=== PATIENT | male | born 1955 | race Caucasian/White ===

== ENCOUNTER 2022-12-31 18:28 | Inpatient (IN) | payer MEDICARE, MEDICAID ==
[~2022-12-31] VITALS: Ht 175.3 cm; Wt 75.0 kg
[~2022-12-31 18:28] MED LIST: ALBU17AE26 PO; APIX5TAB3 PO; ASPI-1475 PO; ATOR40TA72 GT; CARV3.122 GT; DOXY-224 PO; ESOM20CA PO; FURO40TA4 GT; IPRA3AMP31 NEB; NICO-731 TOP; POTA-205 PO; SACU1TAB PO; SPIR25TA5 GT
[2022-12-31 21:40] LABS: ALANINE AMINOTRANSFERASE 65 U/L (12-78); ALBUMIN 1.7 G/DL (3.4-5.0); ALBUMIN/GLOBULIN RATIO 0.3 (1.1-1.5); ALKALINE PHOSPHATASE 388 IU/L (46-116); ANION GAP 9 (8-16); ASPARTATE AMINO TRANSFERASE 72 U/L (10-37); BILIRUBIN,TOTAL 0.8 MG/DL (0.1-1.0); BLOOD UREA NITROGEN 41 MG/DL (7-18); BUN/CREATININE RATIO 33.9 (10.0-20.0); CHLORIDE 116 MMOL/L (99-107); CREATININE 1.21 MG/DL (0.60-1.10); SODIUM 151 MMOL/L (135-145); TOTAL CARBON DIOXIDE 26.4 MMOL/L (24-32); TOTAL PROTEIN 6.6 G/DL (6.4-8.2); eGFR 60 ML/MIN
[2022-12-31 21:47] LABS: GLUCOSE 119 MG/DL (70-104); POTASSIUM 5.1 MMOL/L (3.5-5.1)
[2022-12-31] MEDS ORDERED: pantoprazole 40mg IV 80 MG in normal saline 100ml IV soln 100 ML IV ONE (22:05)
[2022-12-31] MEDS: tPA-cathflo 2 MG/2 ml IV flush IVF PRN ×2 (22:24→23:44)
--- NOTE | 2022-12-31 22:55 | NUR ---
Third attempt to straight cath patient for urine, patient states "I aint doin' that, no no no".
[2022-12-31 23:41] LABS: BASOPHILS % (AUTO) 0.4 % (0-1); EOSINOPHILS # (AUTO) 0.1 X10'3 (0-0.9); EOSINOPHILS % (AUTO) 0.9 % (0-6); HEMATOCRIT 25.9 % (42.0-52.0); HEMOGLOBIN 8.4 g/dl (14.0-17.9); LYMPHOCYTES # (AUTO) 0.5 X10'3 (1.1-4.8); LYMPHOCYTES % (AUTO) 7.6 % (21-51); MEAN CORPUSCULAR HEMOGLOBIN 29.1 PG (27.0-31.0); MEAN CORPUSCULAR HGB CONC 32.4 g/dL (33.0-36.5); MEAN CORPUSCULAR VOLUME 89.8 FL (78-98); MEAN PLATELET VOLUME 8.8 FL (7.4-10.4); MONOCYTES # (AUTO) 0.7 X10'3 (0-0.9); MONOCYTES % (AUTO) 9.5 % (2-12); NEUTROPHILS # (AUTO) 5.8 X10'3 (1.8-7.7); NEUTROPHILS % (AUTO) 81.6 % (42-75); PLATELET COUNT 291 X10'3 (140-440); RED BLOOD COUNT 2.88 X10'6 (4.70-6.10); RED CELL DISTRIBUTION WIDTH 18.6 % (11.5-14.5); WHITE BLOOD COUNT 7.1 X10'3 (4.5-11.0)
[2022-12-31 23:41] LABS: COLOR,URINE YELLOW (Yellow); GLUCOSE, URINE NEGATIVE (Neg); KETONES,URINE NEGATIVE (Neg); LEUKOCYTE ESTERASE ,URINE TRACE (Neg); NITRITES, URINE NEGATIVE (Neg); OCCULT BLOOD,URINE NEGATIVE (Neg); PROTEIN,URINE 100 mg/dl (Neg)
[2023-01-01] VITALS (17 sets, daily range): BP systolic 57–151; BP diastolic 40–103
[2023-01-01] LABS: UA COLLECTION TYPE CLN CATCH MIDSTREAM
[2023-01-01 00:02] LABS: BACTERIA,URINE FEW /HPF (Neg); RBC,URINE 0-2 /HPF (0-2)
[2023-01-01 00:02] LABS: APTT 29 SECONDS (22-32)
[2023-01-01 00:03] LABS: CLARITY,URINE SLIGHTLY CLOUDY (Clear); MUCUS STRANDS FEW /LPF (Neg); SQUAMOUS EPITHELIAL CELL,UR FEW /LPF (FEW); YEAST FEW /HPF (NEGATIVE)
[2023-01-01 00:04] LABS: SPERM FEW /HPF (NEGATIVE)
[2023-01-01 00:19] LABS: ANISOCYTOSIS 2+; NUCLEATED RED BLOOD CELLS 4 /100WBC (0-0); PLATELET ESTIMATE NORMAL; TOTAL CELLS COUNTED 100
[2023-01-01 00:20] LABS: GIANT PLATELET FEW; LARGE PLATELETS FEW; POLYCHROMASIA FEW
[2023-01-01 00:21] LABS: ELLIPTOCYTES FEW; POIKILOCYTOSIS FEW
[2023-01-01 00:22] LABS: SMUDGE CELLS FEW
[2023-01-01] MEDS ORDERED: potassium Cl 40MEQ/1/2NS 520ml 520 ML IV PRN (00:40)
[2023-01-01] MEDS: potassium cl 20mEq in 1/2 NS 1,000 ML IV SCH ×2 (00:40→10:40)
[2023-01-01] MEDS ORDERED: mag hydrox/Alum hydrox/simeth 30ml oral suspension PO PRN (00:40)
[2023-01-01] MEDS ORDERED: potassium Cl 20 mEq SR tablet PO PRN ×2 (00:40)
[2023-01-01] MEDS ORDERED: HYDROcodone/acetaminophen 5mg/325mg tablet PO PRN (00:40)
[2023-01-01] MEDS ORDERED: HYDROcodone/acetaminophen 10/325mg tab PO PRN (00:40)
[2023-01-01] MEDS ORDERED: diphenhydrAMINE 25mg capsule PO PRN (00:40)
[2023-01-01] MEDS ORDERED: magnesium 4gm in 100ml NS 100 ML IV PRN (00:40)
[2023-01-01] MEDS ORDERED: ondansetron/PF 4mg/2ml inj IV PRN ×3 (00:40→19:05)
[2023-01-01] MEDS ORDERED: magnesium hydroxide 30ml (MOM) UD suspension PO PRN ×3 (00:40→19:05)
[2023-01-01] MEDS ORDERED: magnesium Cl slow-release 64mg tablet PO PRN (00:40)
[2023-01-01] MEDS ORDERED: acetaminophen 325mg tablet PO PRN ×5 (00:40→19:05)
[2023-01-01] MEDS ORDERED: rocuronium 10mg/ml inj IV ONE (02:00)
[2023-01-01] MEDS ORDERED: etomidate 2mg/ml inj. ONE (02:00)
[2023-01-01] MEDS: pantoprazole 40MG/NS 100ML BAG 100 ML IV SCH ×5 (02:02→22:15)
[2023-01-01] MEDS: octreotide inj. 1,250 MCG in normal saline 250ml IV soln 243.75 ML IV SCH (02:02)
[2023-01-01 02:39] LABS: MAGNESIUM 2.3 MG/DL (1.5-2.4); POTASSIUM 4.6 MMOL/L (3.5-5.1)
[2023-01-01] MEDS ORDERED: ATR0.5NEB IH (04:38)
[2023-01-01] MEDS ORDERED: DIGO125T97 GT (04:38)
[2023-01-01] MEDS ORDERED: HYDR-3964 PO (04:38)
[2023-01-01] MEDS ORDERED: PANT40VI2 IV (04:47)
[2023-01-01] MEDS ORDERED: LORA-268 GT (04:47)
[2023-01-01] MEDS ORDERED: ipratropium/albuterol 3ml nebule NEB PRN (05:55)
[2023-01-01] MEDS ORDERED: docusate sod 100mg capsule PO SCH (08:00)
[2023-01-01] MEDS: carVEDilol 3.125mg tablet PO SCH ×3 (08:00→20:00)
[2023-01-01] MEDS: sacubitril/valsartan 24mg-26mg tablet PO SCH ×2 (08:00→20:00)
[2023-01-01] MEDS: atorvastatin 20mg tablet PO SCH ×2 (08:00→10:20)
[2023-01-01] MEDS: furosemide 40mg tablet PO SCH ×2 (08:00→20:00)
[2023-01-01] MEDS: K and/or MAG REPLACEMENT MC SCH ×2 (08:00→20:00)
[2023-01-01] MEDS: potassium chloride 10mEq ER tablet PO SCH (08:00)
[2023-01-01] MEDS: spironolactone 25 MG tablet PO SCH (08:00)
[2023-01-01] MEDS: LORazepam 0.5 MG tablet PO SCH ×3 (08:00→20:00)
[2023-01-01] MEDS: HYDROcodone/acetaminophen 5mg/325mg tablet PO SCH ×4 (08:00→16:00)
--- NOTE | 2023-01-01 09:00 | NUR ---
rt was paged for breathing treatment
--- NOTE | 2023-01-01 09:04 | NUR ---
Paged Dr. Morin to clarify order for lasix 40mg po and lasx 80 mg iv.
[2023-01-01] MEDS: nicotine 14mg patch - 24hr TD SCH (09:08)
[2023-01-01] MEDS: furosemide 10 MG/1 ML 10ml inj IV SCH ×2 (09:09→20:00)
[2023-01-01] MEDS: albuterol 2.5 MG/3 ML nebule NEB SCH ×4 (09:46→21:06)
[2023-01-01] MEDS: ipratropium 0.5 MG/2.5ML nebule IH SCH ×3 (09:46→21:06)
--- NOTE | 2023-01-01 09:48 | NUR ---
PER DR BOOKER VERBAL ORDER: STOP SANDOSTATIN AT THIS TIME
[2023-01-01 11:49] LABS: BASOPHILS % (AUTO) 0.7 % (0-1); EOSINOPHILS % (AUTO) 0.7 % (0-6); HEMATOCRIT 26.9 % (42.0-52.0); HEMOGLOBIN 8.4 g/dl (14.0-17.9); LYMPHOCYTES # (AUTO) 0.4 X10'3 (1.1-4.8); LYMPHOCYTES % (AUTO) 7.4 % (21-51); MEAN CORPUSCULAR HEMOGLOBIN 28.8 PG (27.0-31.0); MEAN CORPUSCULAR HGB CONC 31.5 g/dL (33.0-36.5); MEAN CORPUSCULAR VOLUME 91.5 FL (78-98); MEAN PLATELET VOLUME 8.7 FL (7.4-10.4); MONOCYTES # (AUTO) 0.5 X10'3 (0-0.9); MONOCYTES % (AUTO) 10.1 % (2-12); NEUTROPHILS # (AUTO) 4.4 X10'3 (1.8-7.7); NEUTROPHILS % (AUTO) 81.1 % (42-75); PLATELET COUNT 294 X10'3 (140-440); RED BLOOD COUNT 2.94 X10'6 (4.70-6.10); WHITE BLOOD COUNT 5.4 X10'3 (4.5-11.0)
--- NOTE | 2023-01-01 12:10 | NUR ---
UPDATED PT'S BROTHER NAT AT [phone]
[2023-01-01 12:32] LABS: ANISOCYTOSIS 2+; HYPOCHROMASIA 1+; NUCLEATED RED BLOOD CELLS 2 /100WBC (0-0); PLATELET ESTIMATE NORMAL; POLYCHROMASIA 2+; STOMATOCYTES 1+; TOTAL CELLS COUNTED 100
[2023-01-01] MEDS ORDERED: fentaNYL/PF 50MCG/1 ML 2ML syringe ONE ×2 (13:53→18:11)
[2023-01-01] MEDS ORDERED: LIDOcaine Viscous 15ml cup ONE (13:53)
[2023-01-01] MEDS ORDERED: MIDAZolam 1 MG/ML 5ML VIAL ONE (13:53)
[2023-01-01] MEDS ORDERED: epiNEPHrine 0.1mg/ml 10ml syringe ONE (15:31)
--- NOTE | 2023-01-01 15:38 | NUR ---
called to get report from ER will await call back
[2023-01-01] MEDS ORDERED: morphine 2 MG/ML inj. syringe IV PRN ×2 (15:45→19:05)
[2023-01-01] MEDS ORDERED: morphine 4 MG/ML inj SYRINge IV PRN ×2 (15:45→19:05)
[2023-01-01] MEDS ORDERED: heparin, porcine 5000 units/ml vial SQ SCH ×2 (16:00)
--- NOTE | 2023-01-01 16:36 | NUR ---
REC'VD TELEPHONE ORDER FROM DR BOOKER, ORDER H AND H Q4 HRS TIMES 3. ORDER WAS INPUT BY THIS RN
[2023-01-01 17:52] LABS: BASOPHILS % (AUTO) 0.4 % (0-1); EOSINOPHILS % (AUTO) 0.4 % (0-6); HEMATOCRIT 25.4 % (42.0-52.0); HEMOGLOBIN 7.9 g/dl (14.0-17.9); LYMPHOCYTES # (AUTO) 0.8 X10'3 (1.1-4.8); LYMPHOCYTES % (AUTO) 8.6 % (21-51); MEAN CORPUSCULAR HEMOGLOBIN 28.5 PG (27.0-31.0); MEAN CORPUSCULAR HGB CONC 31.1 g/dL (33.0-36.5); MEAN CORPUSCULAR VOLUME 91.6 FL (78-98); MEAN PLATELET VOLUME 8.7 FL (7.4-10.4); MONOCYTES % (AUTO) 11.6 % (2-12); NEUTROPHILS # (AUTO) 6.9 X10'3 (1.8-7.7); PLATELET COUNT 358 X10'3 (140-440); RED BLOOD COUNT 2.78 X10'6 (4.70-6.10); RED CELL DISTRIBUTION WIDTH 19.4 % (11.5-14.5); WHITE BLOOD COUNT 8.8 X10'3 (4.5-11.0)
--- NOTE | 2023-01-01 18:02 | NUR ---
180:RT Donis, Dr. Ward, Primary RN Anshu at bedside.115/53mmhg, 92% BVM,33RR, patient with agonal breathing,intermittent apnea,hr 110 sinus 180:etomidate 20mg,alexis 50mg- administered by Primary RN Anshu.Intubation by Dr. Ward.ET tube 8.0 24cm in the gums.positive color change with etc02 capnography, equal bilateral lungs sounds. 96%,117 HR sinus 181: fentanyl 100mcg IVP given by Primary RN Anshu. 1813: radiology at bedside to check for tube placement. 1814: HR 110 sinus tachy,22 RR FI02 100%, BP 50/31, pulse ox not giving a good plathe.
[2023-01-01] MEDS ORDERED: fentaNYL/PF 50MCG/1 ML 2ML syringe IV ONE (18:10)
[2023-01-01] MEDS ORDERED: fentaNYL 50mcg/ml PF inj. 2,500 MCG in normal saline 250ml IV soln 200 ML IV SCH (18:15)
[2023-01-01] MEDS ORDERED: FENTANYL CITRATE/D5W/PF 100 ML IV SCH (18:18)
--- NOTE | 2023-01-01 18:23 | NUR ---
Fentanyl drip still not available from the pharmacy.
[2023-01-01] MEDS: NORepinephrine 8mg/ 250ml NS 250 ML IV SCH (18:37)
[2023-01-01] MEDS: NORMAL SALINE IV SCH (18:41)
[2023-01-01] MEDS: FENTANYL IV SCH (18:41)
[2023-01-01 18:43] LABS: ABG BASE EXCESS -4.1 mmol/L (-2.0-2.0); ABG HCO3 20.2 mmol/L (22.0-26.0); ABG OXYGEN SATURATION 98.9 % (94-97); ABG PCO2 (T) 31.4 mmHg (35.0-48.0); ABG PO2 (T) 268.4 mmHg (75.0-100.0); ALLEN'S TEST POSITIVE; FCOHb 0.5 % (0.0-3.9); FMetHb 0.6 % (0.0-1.5); FO2Hb 97.8 % (94-97); PEEP 5 cm H2O; RESPIRATORY RATE 18 b/min; TIDAL VOLUME 450 mL
[2023-01-01] MEDS ORDERED: albumin (human) 25% 100 ML IV solution IV ONE (18:55)
[2023-01-01] MEDS ORDERED: albumin (human) 25% 100ml IV 400 ML IV ONE (19:00)
[2023-01-01 19:02] LABS: MEAN CORPUSCULAR HEMOGLOBIN 28.4 PG (27.0-31.0); MEAN CORPUSCULAR HGB CONC 30.4 g/dL (33.0-36.5); MEAN CORPUSCULAR VOLUME 93.3 FL (78-98); MEAN PLATELET VOLUME 8.5 FL (7.4-10.4); PLATELET COUNT 320 X10'3 (140-440); RED BLOOD COUNT 1.87 X10'6 (4.70-6.10); RED CELL DISTRIBUTION WIDTH 19.4 % (11.5-14.5); WHITE BLOOD COUNT 6.9 X10'3 (4.5-11.0)
[2023-01-01] MEDS ORDERED: normal saline 1000ml 1,000 ML IV SCH (19:05)
[2023-01-01] MEDS ORDERED: tranexamic acid inj. 1,000 MG in normal saline 100ml IV soln 90 ML IV ONE (19:05)
[2023-01-01] MEDS ORDERED: LidoCAINE 2% Topical Jelly 11mL syringe TOP ONE (19:05)
[2023-01-01 19:07] LABS: HEMATOCRIT 17.4 % (42.0-52.0); HEMOGLOBIN 5.3 g/dl (14.0-17.9)
--- NOTE | 2023-01-01 19:22 | NUR ---
Versed drip getting ready by pharmacy per Jared.
[2023-01-01] MEDS ORDERED: midazolam 100mg in NS 100ml 100 ML IV PRN (19:45)
--- NOTE | 2023-01-01 19:54 | NUR ---
Pineda 50mg given by Primary RN Dr. Maura Moura at bedside to attempt placement of right subclavian central line.V/s 108/67mmmhg, 100% 80% FIO2, HR 114 sinus tachy, RR 18.
[2023-01-01] MEDS: docusate sodium 100mg/10ml UD cup PO SCH (20:00)
--- NOTE | 2023-01-01 20:08 | NUR ---
Right subclavian central line successfully placed by Dr. Lorenzo.
[2023-01-01] MEDS: albumin (Human) 5% 250ml 250 ML IV SCH ×2 (21:59→23:20)
[2023-01-02] VITALS (37 sets, daily range): BP systolic 88–139; BP diastolic 54–74
[2023-01-02] MEDS: albuterol 2.5 MG/3 ML nebule NEB SCH ×6 (00:47→19:18)
[2023-01-02] MEDS: pantoprazole 40MG/NS 100ML BAG 100 ML IV SCH ×6 (01:00→23:30)
[2023-01-02] MEDS: digoxin 125mcg (0.125mg) tablet PO SCH ×2 (01:40→21:00)
[2023-01-02] MEDS: albumin (Human) 5% 250ml 250 ML IV SCH (01:49)
[2023-01-02 01:57] LABS: ALANINE AMINOTRANSFERASE 37 U/L (12-78); ALBUMIN 1.4 G/DL (3.4-5.0); ALBUMIN/GLOBULIN RATIO 0.5 (1.1-1.5); ALKALINE PHOSPHATASE 157 IU/L (46-116); ANION GAP 8 (8-16); ASPARTATE AMINO TRANSFERASE 42 U/L (10-37); BILIRUBIN,TOTAL 1.7 MG/DL (0.1-1.0); BLOOD UREA NITROGEN 46 MG/DL (7-18); BUN/CREATININE RATIO 32.4 (10.0-20.0); CALCIUM 6.8 MG/DL (8.5-10.1); CHLORIDE 122 MMOL/L (99-107); CREATININE 1.42 MG/DL (0.60-1.10); GLUCOSE 126 MG/DL (70-104); POTASSIUM 4.6 MMOL/L (3.5-5.1); TOTAL CARBON DIOXIDE 25.3 MMOL/L (24-32); TOTAL PROTEIN 4.1 G/DL (6.4-8.2); eGFR 50 ML/MIN
[2023-01-02 02:10] LABS: SODIUM 155 MMOL/L (135-145)
[2023-01-02 02:18] LABS: EOSINOPHILS % (AUTO) 0.4 % (0-6); HEMOGLOBIN 8.7 g/dl (14.0-17.9); LYMPHOCYTES # (AUTO) 0.5 X10'3 (1.1-4.8); MONOCYTES # (AUTO) 0.5 X10'3 (0-0.9); NEUTROPHILS % (AUTO) 80.4 % (42-75)
[2023-01-02 02:19] LABS: BASOPHILS % (AUTO) 0.4 % (0-1); HEMATOCRIT 26.8 % (42.0-52.0); LYMPHOCYTES % (AUTO) 9.3 % (21-51); MEAN CORPUSCULAR HEMOGLOBIN 29.3 PG (27.0-31.0); MEAN CORPUSCULAR HGB CONC 32.5 g/dL (33.0-36.5); MEAN PLATELET VOLUME 8.7 FL (7.4-10.4); MONOCYTES % (AUTO) 9.5 % (2-12); NEUTROPHILS # (AUTO) 4.2 X10'3 (1.8-7.7); PLATELET COUNT 218 X10'3 (140-440); RED BLOOD COUNT 2.97 X10'6 (4.70-6.10); RED CELL DISTRIBUTION WIDTH 15.9 % (11.5-14.5); WHITE BLOOD COUNT 5.2 X10'3 (4.5-11.0)
[2023-01-02 02:59] LABS: NUCLEATED RED BLOOD CELLS 5 /100WBC (0-0); TOTAL CELLS COUNTED 100
[2023-01-02 03:08] LABS: LARGE PLATELETS FEW; PLATELET ESTIMATE NORMAL
[2023-01-02 03:42] LABS: ABG BASE EXCESS -3.4 mmol/L (-2.0-2.0); ABG HCO3 19.5 mmol/L (22.0-26.0); ABG OXYGEN SATURATION 97.4 % (94-97); ABG PCO2 (T) 26.5 mmHg (35.0-48.0); ALLEN'S TEST POSITIVE; FCOHb 0.3 % (0.0-3.9); FMetHb 0.3 % (0.0-1.5); FO2Hb 96.8 % (94-97); PEEP 5 cm H2O; RESPIRATORY RATE 18 b/min; TIDAL VOLUME 450 mL; TOTAL HEMOGLOBIN 8.9 G/dl (14.0-17.9)
[2023-01-02] MEDS: ipratropium 0.5 MG/2.5ML nebule IH SCH ×4 (03:43→19:18)
--- NOTE | 2023-01-02 04:24 | NUR ---
critical value of Na [address] Grove, ordered stop albumin and NSS infusion, start half saline 75cc/hr
[2023-01-02] MEDS: sodium chloride 0.45% 1,000 ML IV SCH ×2 (04:39→18:28)
[2023-01-02 06:03] LABS: HEMATOCRIT 23.9 % (42.0-52.0); HEMOGLOBIN 7.9 g/dl (14.0-17.9); MEAN CORPUSCULAR HEMOGLOBIN 29.6 PG (27.0-31.0); MEAN CORPUSCULAR HGB CONC 33.1 g/dL (33.0-36.5); MEAN CORPUSCULAR VOLUME 89.4 FL (78-98); MEAN PLATELET VOLUME 8.6 FL (7.4-10.4); PLATELET COUNT 205 X10'3 (140-440); RED BLOOD COUNT 2.67 X10'6 (4.70-6.10); RED CELL DISTRIBUTION WIDTH 15.8 % (11.5-14.5); WHITE BLOOD COUNT 5.7 X10'3 (4.5-11.0)
--- NOTE | 2023-01-02 06:20 | NUR ---
Problems reprioritized. Patient report given, questions answered & plan of care reviewed with JODY Willoughby.
[2023-01-02] MEDS: spironolactone 25 MG tablet PO SCH (08:00)
[2023-01-02] MEDS: atorvastatin 20mg tablet PO SCH (08:00)
[2023-01-02] MEDS: potassium chloride 10mEq ER tablet PO SCH (08:00)
[2023-01-02] MEDS: K and/or MAG REPLACEMENT MC SCH ×2 (08:00→20:00)
[2023-01-02] MEDS: sacubitril/valsartan 24mg-26mg tablet PO SCH ×2 (08:00→20:00)
[2023-01-02] MEDS: furosemide 40mg tablet PO SCH ×2 (08:00→20:00)
[2023-01-02] MEDS: carVEDilol 3.125mg tablet PO SCH ×2 (08:00→20:00)
[2023-01-02] MEDS: LORazepam 0.5 MG tablet PO SCH ×2 (08:00→20:00)
[2023-01-02] MEDS: docusate sodium 100mg/10ml UD cup PO SCH ×2 (08:00→20:00)
[2023-01-02] MEDS: FENTANYL IV SCH (08:35)
[2023-01-02] MEDS: NORMAL SALINE IV SCH (08:35)
[2023-01-02] MEDS: furosemide 10 MG/1 ML 10ml inj IV SCH ×2 (08:36→20:37)
[2023-01-02] MEDS: nicotine 14mg patch - 24hr TD SCH (08:36)
--- NOTE | 2023-01-02 11:06 | NUR ---
Initial: Pt admit for GIB. Pt s/p EGD with findings of recurrent duodenal ulcer bleed per report. Pt remains intubated at this time, per MD pt to remain intubated and possibly get scoped again. Pt with an OGT in place, per RN with minimal output but still blood in color. No plans to initiate nutrition support at this time though will place recs below for if pt able to receive EN. MD and RN notified of patient's A1c hx (7.1% 12/01/21, 7.4% 10/14/22, and 9.0% 11/05/22) and need for DM dx as appropriate following extubation. Will continue to follow closely. Recommendations: 1) IF TF, continuous Vital AF with 70 mL/hr goal rate. Begin at 30 mL/hr and advance by 20 mL Q8H as tolerated to goal rate 2) IF TF, additional 200 mL water flush Q4H; monitor serum Na 3) IF TF, prealbumin q Wednesday/; daily scaled weights 4) Bowel care per MD 5) Advance to heart healthy CHO controlled diet as medically indicated following extubation 6) DM education as appropriate following official DM dx by physician after extubation; A1c hx 7.1% 12/01/21, 7.4% 10/14/22, and 9.0% 11/05/22 and no known DM dx provided yet Addendum: 01/02/23 at [address] Amended: Links added.
[2023-01-02 11:29] LABS: BASOPHILS % (AUTO) 0.4 % (0-1); EOSINOPHILS # (AUTO) 0.1 X10'3 (0-0.9); EOSINOPHILS % (AUTO) 2.1 % (0-6); HEMOGLOBIN 8.3 g/dl (14.0-17.9); LYMPHOCYTES # (AUTO) 0.5 X10'3 (1.1-4.8); LYMPHOCYTES % (AUTO) 6.4 % (21-51); MEAN CORPUSCULAR HEMOGLOBIN 29.6 PG (27.0-31.0); MEAN CORPUSCULAR HGB CONC 33.3 g/dL (33.0-36.5); MEAN PLATELET VOLUME 8.2 FL (7.4-10.4); MONOCYTES # (AUTO) 0.5 X10'3 (0-0.9); MONOCYTES % (AUTO) 7.6 % (2-12); NEUTROPHILS % (AUTO) 83.5 % (42-75); PLATELET COUNT 236 X10'3 (140-440); RED BLOOD COUNT 2.81 X10'6 (4.70-6.10); RED CELL DISTRIBUTION WIDTH 16.4 % (11.5-14.5); WHITE BLOOD COUNT 7.1 X10'3 (4.5-11.0)
[2023-01-02] MEDS ORDERED: fentaNYL/PF 50MCG/1 ML 2ML syringe ONE (11:57)
[2023-01-02] MEDS ORDERED: LIDOcaine Viscous 15ml cup ONE (11:58)
[2023-01-02] MEDS ORDERED: MIDAZolam 1 MG/ML 5ML VIAL ONE ×2 (11:58)
--- NOTE | 2023-01-02 13:00 | NUR ---
dr schroeder here- egd done- no active bleeding. hgb stable- checked q6h dr muniz here to evaluate pt. update to pts brother x3. pt opens eyes, doesnt follow commands. versed changed to [place]. chaplain ding called re pts brother desire to have a valet parker or pipefitter to come. He will follow up with a valet parker or himself to see pt in the next day or so.
[2023-01-02] MEDS: propofol 1000mg/100ml bottle 100 ML IV SCH (13:26)
[2023-01-02] MEDS: NORepinephrine 8mg/ 250ml NS 250 ML IV SCH (13:53)
[2023-01-02 17:30] LABS: BASOPHILS % (AUTO) 0.4 % (0-1); EOSINOPHILS # (AUTO) 0.2 X10'3 (0-0.9); EOSINOPHILS % (AUTO) 2.4 % (0-6); HEMATOCRIT 24.9 % (42.0-52.0); HEMOGLOBIN 8.2 g/dl (14.0-17.9); LYMPHOCYTES # (AUTO) 0.4 X10'3 (1.1-4.8); LYMPHOCYTES % (AUTO) 5.2 % (21-51); MEAN CORPUSCULAR HEMOGLOBIN 29.4 PG (27.0-31.0); MEAN CORPUSCULAR HGB CONC 32.8 g/dL (33.0-36.5); MEAN CORPUSCULAR VOLUME 89.9 FL (78-98); MEAN PLATELET VOLUME 8.5 FL (7.4-10.4); MONOCYTES # (AUTO) 0.5 X10'3 (0-0.9); MONOCYTES % (AUTO) 5.8 % (2-12); NEUTROPHILS # (AUTO) 6.9 X10'3 (1.8-7.7); NEUTROPHILS % (AUTO) 86.2 % (42-75); PLATELET COUNT 224 X10'3 (140-440); RED BLOOD COUNT 2.77 X10'6 (4.70-6.10); RED CELL DISTRIBUTION WIDTH 16.8 % (11.5-14.5)
[2023-01-02 22:56] LABS: BASOPHILS % (AUTO) 0.3 % (0-1); EOSINOPHILS # (AUTO) 0.2 X10'3 (0-0.9); EOSINOPHILS % (AUTO) 1.9 % (0-6); HEMATOCRIT 26.4 % (42.0-52.0); HEMOGLOBIN 8.8 g/dl (14.0-17.9); LYMPHOCYTES # (AUTO) 0.4 X10'3 (1.1-4.8); LYMPHOCYTES % (AUTO) 4.3 % (21-51); MEAN CORPUSCULAR HEMOGLOBIN 30.1 PG (27.0-31.0); MEAN CORPUSCULAR HGB CONC 33.3 g/dL (33.0-36.5); MEAN CORPUSCULAR VOLUME 90.2 FL (78-98); MEAN PLATELET VOLUME 8.2 FL (7.4-10.4); MONOCYTES # (AUTO) 0.6 X10'3 (0-0.9); MONOCYTES % (AUTO) 5.7 % (2-12); NEUTROPHILS # (AUTO) 8.8 X10'3 (1.8-7.7); NEUTROPHILS % (AUTO) 87.8 % (42-75); PLATELET COUNT 250 X10'3 (140-440); RED BLOOD COUNT 2.93 X10'6 (4.70-6.10); RED CELL DISTRIBUTION WIDTH 16.8 % (11.5-14.5)
[2023-01-02 23:58] LABS: TOTAL CELLS COUNTED 100
[2023-01-02 23:59] LABS: ANISOCYTOSIS 1+; PLATELET ESTIMATE NORMAL
[2023-01-03] VITALS (35 sets, daily range): BP systolic 83–137; BP diastolic 50–79
[2023-01-03] MEDS: octreotide inj. 1,250 MCG in normal saline 250ml IV soln 243.75 ML IV SCH (00:45)
[2023-01-03] MEDS: ipratropium 0.5 MG/2.5ML nebule IH SCH (01:13)
[2023-01-03] MEDS: albuterol 2.5 MG/3 ML nebule NEB SCH ×2 (01:13→03:56)
[2023-01-03 03:52] LABS: ABG BASE EXCESS -3.3 mmol/L (-2.0-2.0); ABG HCO3 21.1 mmol/L (22.0-26.0); ABG OXYGEN SATURATION 90.9 % (94-97); ABG PCO2 (T) 36.2 mmHg (35.0-48.0); ABG PO2 (T) 61.8 mmHg (75.0-100.0); ALLEN'S TEST POSITIVE; FCOHb 0.8 % (0.0-3.9); FMetHb 0.2 % (0.0-1.5); PATIENT TEMPERATURE 37.5; PEEP 5 cm H2O; RESPIRATORY RATE 18 b/min; TIDAL VOLUME 450 mL; TOTAL HEMOGLOBIN 9.8 G/dl (14.0-17.9)
[2023-01-03] MEDS: pantoprazole 40MG/NS 100ML BAG 100 ML IV SCH ×4 (04:03→19:25)
[2023-01-03] MEDS: NORMAL SALINE IV SCH ×2 (04:49→22:13)
[2023-01-03] MEDS: FENTANYL IV SCH ×2 (04:49→22:13)
[2023-01-03 04:51] LABS: BASOPHILS % (AUTO) 0.3 % (0-1); EOSINOPHILS # (AUTO) 0.1 X10'3 (0-0.9); EOSINOPHILS % (AUTO) 1.3 % (0-6); HEMATOCRIT 26.7 % (42.0-52.0); HEMOGLOBIN 8.8 g/dl (14.0-17.9); LYMPHOCYTES # (AUTO) 0.5 X10'3 (1.1-4.8); LYMPHOCYTES % (AUTO) 4.4 % (21-51); MEAN CORPUSCULAR HEMOGLOBIN 29.6 PG (27.0-31.0); MEAN CORPUSCULAR HGB CONC 32.8 g/dL (33.0-36.5); MEAN CORPUSCULAR VOLUME 90.1 FL (78-98); MONOCYTES # (AUTO) 0.6 X10'3 (0-0.9); MONOCYTES % (AUTO) 5.3 % (2-12); NEUTROPHILS # (AUTO) 9.8 X10'3 (1.8-7.7); NEUTROPHILS % (AUTO) 88.7 % (42-75); PLATELET COUNT 255 X10'3 (140-440); RED BLOOD COUNT 2.97 X10'6 (4.70-6.10); RED CELL DISTRIBUTION WIDTH 16.5 % (11.5-14.5)
[2023-01-03 05:02] LABS: ALANINE AMINOTRANSFERASE 38 U/L (12-78); ALBUMIN 1.6 G/DL (3.4-5.0); ALBUMIN/GLOBULIN RATIO 0.5 (1.1-1.5); ALKALINE PHOSPHATASE 143 IU/L (46-116); ANION GAP 12 (8-16); ASPARTATE AMINO TRANSFERASE 49 U/L (10-37); BILIRUBIN,TOTAL 1.9 MG/DL (0.1-1.0); BLOOD UREA NITROGEN 49 MG/DL (7-18); CALCIUM 6.9 MG/DL (8.5-10.1); CHLORIDE 120 MMOL/L (99-107); CREATININE 1.69 MG/DL (0.60-1.10); GLUCOSE 90 MG/DL (70-104); MAGNESIUM 1.8 MG/DL (1.5-2.4); POTASSIUM 3.3 MMOL/L (3.5-5.1); SODIUM 154 MMOL/L (135-145); TOTAL CARBON DIOXIDE 22.4 MMOL/L (24-32); TOTAL PROTEIN 4.6 G/DL (6.4-8.2); eGFR 41 ML/MIN
[2023-01-03 05:53] LABS: ANISOCYTOSIS 1+; NUCLEATED RED BLOOD CELLS 1 /100WBC (0-0); PLATELET ESTIMATE NORMAL; TOTAL CELLS COUNTED 100
--- NOTE | 2023-01-03 06:28 | NUR ---
Problems reprioritized. Patient report given, questions answered & plan of care reviewed with FRANCE VERA.
[2023-01-03] MEDS: ipratropium/albuterol 3ml nebule NEB SCH ×5 (07:18→23:32)
--- NOTE | 2023-01-03 07:41 | NUR ---
Patient in room CICU 2016. I have received report from Kay VERA and had the opportunity to ask questions and assume patient care.
[2023-01-03] MEDS: sodium chloride 0.45% 1,000 ML IV SCH ×2 (07:42→20:25)
[2023-01-03] MEDS: atorvastatin 20mg tablet PO SCH (08:00)
[2023-01-03] MEDS: sacubitril/valsartan 24mg-26mg tablet PO SCH ×2 (08:00→20:00)
[2023-01-03] MEDS: K and/or MAG REPLACEMENT MC SCH ×2 (08:00→20:00)
[2023-01-03] MEDS: carVEDilol 3.125mg tablet PO SCH ×2 (08:00→20:00)
[2023-01-03] MEDS: furosemide 40mg tablet PO SCH ×2 (08:00→20:00)
[2023-01-03] MEDS: LORazepam 0.5 MG tablet PO SCH ×2 (08:00→20:00)
[2023-01-03] MEDS: spironolactone 25 MG tablet PO SCH (08:00)
[2023-01-03] MEDS: docusate sodium 100mg/10ml UD cup PO SCH ×2 (08:00→20:00)
[2023-01-03] MEDS: furosemide 10 MG/1 ML 10ml inj IV SCH ×3 (08:30→20:29)
[2023-01-03] MEDS: nicotine 14mg patch - 24hr TD SCH ×3 (08:31→09:58)
[2023-01-03] MEDS: NORepinephrine 8mg/ 250ml NS 250 ML IV SCH (09:21)
[2023-01-03] MEDS: potassium chloride 10mEq ER tablet PO SCH (09:56)
[2023-01-03] MEDS ORDERED: potassium Cl 40MEQ/1/2NS 520ml 520 ML IV ONE (10:10)
[2023-01-03] MEDS: propofol 1000mg/100ml bottle 100 ML IV SCH (11:15)
[2023-01-03 11:36] LABS: HEMATOCRIT 26.6 % (42.0-52.0); HEMOGLOBIN 8.4 g/dl (14.0-17.9); MEAN CORPUSCULAR HEMOGLOBIN 28.9 PG (27.0-31.0); MEAN CORPUSCULAR HGB CONC 31.7 g/dL (33.0-36.5); MEAN CORPUSCULAR VOLUME 91.1 FL (78-98); PLATELET COUNT 264 X10'3 (140-440); RED BLOOD COUNT 2.92 X10'6 (4.70-6.10); WHITE BLOOD COUNT 12.3 X10'3 (4.5-11.0)
[2023-01-03] MEDS ORDERED: DOBUTamine-DoBUTrex 500mg/D5W 250 ML IV SCH (12:10)
[2023-01-03] MEDS ORDERED: vancomycin/NS 1 GM ADD-VANTAGE 250 ML X 1 DOSE IV SCH (12:40)
[2023-01-03] MEDS: vancomycin/NS 1 GM ADD-VANTAGE 250 ML IV SCH (13:40)
[2023-01-03] MEDS: cefepime 1GM/NS ADD-VANTAGE 100 ML IV SCH ×2 (13:40→16:27)
[2023-01-03] MEDS ORDERED: furosemide 20 MG/2 ML vial IV SCH (14:00)
[2023-01-03 17:50] LABS: HEMATOCRIT 24.1 % (42.0-52.0); HEMOGLOBIN 7.7 g/dl (14.0-17.9); MEAN CORPUSCULAR HEMOGLOBIN 29.5 PG (27.0-31.0); MEAN CORPUSCULAR HGB CONC 32.1 g/dL (33.0-36.5); MEAN CORPUSCULAR VOLUME 92.1 FL (78-98); MEAN PLATELET VOLUME 8.2 FL (7.4-10.4); PLATELET COUNT 241 X10'3 (140-440); RED BLOOD COUNT 2.62 X10'6 (4.70-6.10); WHITE BLOOD COUNT 11.5 X10'3 (4.5-11.0)
--- NOTE | 2023-01-03 18:08 | NUR ---
Problems reprioritized. Patient report given, questions answered & plan of care reviewed with Jones VERA .
--- NOTE | 2023-01-03 18:10 | NUR ---
Patient in room CICU 2016. I have received report from Cammy Rowan RN and had the opportunity to ask questions and assume patient care.
[2023-01-03] MEDS: digoxin 125mcg (0.125mg) tablet PO SCH (20:31)
[2023-01-04] VITALS (31 sets, daily range): BP systolic 95–148; BP diastolic 46–76
[2023-01-04] MEDS: cefepime 1GM/NS ADD-VANTAGE 100 ML IV SCH ×2 (00:30→08:53)
[2023-01-04] MEDS: digoxin 125mcg (0.125mg) tablet PO SCH ×2 (00:31→20:16)
[2023-01-04] MEDS: sodium chloride 0.45% 1,000 ML IV SCH ×2 (01:14→16:21)
[2023-01-04] MEDS: pantoprazole 40MG/NS 100ML BAG 100 ML IV SCH ×5 (01:14→21:35)
[2023-01-04 01:42] LABS: BASOPHILS % (AUTO) 0.4 % (0-1); EOSINOPHILS # (AUTO) 0.1 X10'3 (0-0.9); EOSINOPHILS % (AUTO) 1.1 % (0-6); HEMATOCRIT 24.5 % (42.0-52.0); LYMPHOCYTES # (AUTO) 0.4 X10'3 (1.1-4.8); LYMPHOCYTES % (AUTO) 4.3 % (21-51); MEAN CORPUSCULAR HEMOGLOBIN 29.9 PG (27.0-31.0); MEAN CORPUSCULAR HGB CONC 32.7 g/dL (33.0-36.5); MEAN CORPUSCULAR VOLUME 91.5 FL (78-98); MEAN PLATELET VOLUME 8.4 FL (7.4-10.4); MONOCYTES # (AUTO) 0.8 X10'3 (0-0.9); MONOCYTES % (AUTO) 7.8 % (2-12); NEUTROPHILS # (AUTO) 8.5 X10'3 (1.8-7.7); NEUTROPHILS % (AUTO) 86.4 % (42-75); PLATELET COUNT 240 X10'3 (140-440); RED BLOOD COUNT 2.68 X10'6 (4.70-6.10); RED CELL DISTRIBUTION WIDTH 17.4 % (11.5-14.5); WHITE BLOOD COUNT 9.8 X10'3 (4.5-11.0)
[2023-01-04 01:51] LABS: ALANINE AMINOTRANSFERASE 40 U/L (12-78); ALBUMIN 1.3 G/DL (3.4-5.0); ALBUMIN/GLOBULIN RATIO 0.4 (1.1-1.5); ALKALINE PHOSPHATASE 125 IU/L (46-116); ANION GAP 13 (8-16); ASPARTATE AMINO TRANSFERASE 63 U/L (10-37); BILIRUBIN,TOTAL 2.4 MG/DL (0.1-1.0); BLOOD UREA NITROGEN 54 MG/DL (7-18); BUN/CREATININE RATIO 30.9 (10.0-20.0); CHLORIDE 120 MMOL/L (99-107); CREATININE 1.75 MG/DL (0.60-1.10); GLUCOSE 93 MG/DL (70-104); MAGNESIUM 1.8 MG/DL (1.5-2.4); POTASSIUM 3.4 MMOL/L (3.5-5.1); TOTAL PROTEIN 4.3 G/DL (6.4-8.2); eGFR 39 ML/MIN
[2023-01-04 01:55] LABS: SODIUM 155 MMOL/L (135-145)
[2023-01-04] MEDS: furosemide 10 MG/1 ML 10ml inj IV SCH ×4 (02:14→20:17)
[2023-01-04] MEDS: potassium Cl 40MEQ/270ML bag 270 ML IV PRN (02:18)
[2023-01-04 03:37] LABS: NUCLEATED RED BLOOD CELLS 1 /100WBC (0-0); TOTAL CELLS COUNTED 100
[2023-01-04 03:38] LABS: ANISOCYTOSIS 1+; PLATELET ESTIMATE NORMAL
[2023-01-04 03:52] LABS: ABG BASE EXCESS -6.2 mmol/L (-2.0-2.0); ABG HCO3 17.9 mmol/L (22.0-26.0); ABG OXYGEN SATURATION 92.8 % (94-97); ABG PCO2 (T) 28.5 mmHg (35.0-48.0); ABG PO2 (T) 59.6 mmHg (75.0-100.0); ALLEN'S TEST Modified; FCOHb 0.3 % (0.0-3.9); FMetHb 0.2 % (0.0-1.5); FO2Hb 92.3 % (94-97); PATIENT TEMPERATURE 35.5; PEEP 5 cm H2O; RESPIRATORY RATE 18 b/min; TIDAL VOLUME 450 mL; TOTAL HEMOGLOBIN 8.6 G/dl (14.0-17.9)
[2023-01-04] MEDS: ipratropium/albuterol 3ml nebule NEB SCH ×6 (04:02→23:41)
[2023-01-04] MEDS: NORepinephrine 8mg/ 250ml NS 250 ML IV SCH (04:49)
[2023-01-04] MEDS: propofol 1000mg/100ml bottle 100 ML IV SCH (05:32)
[2023-01-04 05:57] LABS: HEMATOCRIT 25.1 % (42.0-52.0); HEMOGLOBIN 8.1 g/dl (14.0-17.9); MEAN CORPUSCULAR HEMOGLOBIN 29.7 PG (27.0-31.0); MEAN CORPUSCULAR HGB CONC 32.4 g/dL (33.0-36.5); MEAN CORPUSCULAR VOLUME 91.5 FL (78-98); MEAN PLATELET VOLUME 8.2 FL (7.4-10.4); PLATELET COUNT 252 X10'3 (140-440); RED BLOOD COUNT 2.74 X10'6 (4.70-6.10); RED CELL DISTRIBUTION WIDTH 17.1 % (11.5-14.5); WHITE BLOOD COUNT 10.5 X10'3 (4.5-11.0)
--- NOTE | 2023-01-04 06:23 | NUR ---
Problems reprioritized. Patient report given, questions answered & plan of care reviewed with Tess VERA.
[2023-01-04] MEDS: docusate sodium 100mg/10ml UD cup PO SCH ×2 (07:42→20:00)
[2023-01-04] MEDS: carVEDilol 3.125mg tablet PO SCH ×2 (07:42→21:39)
[2023-01-04] MEDS: spironolactone 25 MG tablet PO SCH (07:42)
[2023-01-04] MEDS: LORazepam 0.5 MG tablet PO SCH ×2 (07:42→20:00)
[2023-01-04] MEDS: atorvastatin 20mg tablet PO SCH (08:00)
[2023-01-04] MEDS: K and/or MAG REPLACEMENT MC SCH ×2 (08:00→20:00)
[2023-01-04] MEDS: potassium chloride 10mEq ER tablet PO SCH (08:00)
[2023-01-04] MEDS: sacubitril/valsartan 24mg-26mg tablet PO SCH ×2 (08:00→20:00)
[2023-01-04 12:13] LABS: POTASSIUM 3.4 MMOL/L (3.5-5.1)
[2023-01-04] MEDS ORDERED: potassium Cl 40MEQ/270ML bag 270 ML IV ONE (13:05)
[2023-01-04] MEDS: vancomycin/NS 1 GM ADD-VANTAGE 250 ML IV SCH (13:14)
[2023-01-04] MEDS ORDERED: cefepime 1GM/NS ADD-VANTAGE 100 ML IV SCH (15:58)
--- NOTE | 2023-01-04 18:05 | NUR ---
Patient in room CICU 2016. I have received report from Tess VERA and had the opportunity to ask questions and assume patient care.
[2023-01-04] MEDS: dextrose 5%-water 1,000 ML IV SCH (20:23)
[2023-01-05] VITALS (24 sets, daily range): BP systolic 86–147; BP diastolic 51–96
[2023-01-05] MEDS: pantoprazole 40MG/NS 100ML BAG 100 ML IV SCH ×5 (02:07→19:28)
[2023-01-05] MEDS: furosemide 10 MG/1 ML 10ml inj IV SCH (02:09)
[2023-01-05 03:00] LABS: BASOPHILS % (AUTO) 0.2 % (0-1); EOSINOPHILS # (AUTO) 0.2 X10'3 (0-0.9); EOSINOPHILS % (AUTO) 2.1 % (0-6); HEMATOCRIT 27.1 % (42.0-52.0); HEMOGLOBIN 8.8 g/dl (14.0-17.9); LYMPHOCYTES # (AUTO) 0.3 X10'3 (1.1-4.8); LYMPHOCYTES % (AUTO) 3.3 % (21-51); MEAN CORPUSCULAR HEMOGLOBIN 29.7 PG (27.0-31.0); MEAN CORPUSCULAR HGB CONC 32.6 g/dL (33.0-36.5); MEAN CORPUSCULAR VOLUME 91.1 FL (78-98); MEAN PLATELET VOLUME 8.2 FL (7.4-10.4); MONOCYTES # (AUTO) 0.8 X10'3 (0-0.9); MONOCYTES % (AUTO) 8.3 % (2-12); NEUTROPHILS # (AUTO) 8.4 X10'3 (1.8-7.7); NEUTROPHILS % (AUTO) 86.1 % (42-75); PLATELET COUNT 292 X10'3 (140-440); RED BLOOD COUNT 2.97 X10'6 (4.70-6.10); RED CELL DISTRIBUTION WIDTH 17.5 % (11.5-14.5); WHITE BLOOD COUNT 9.7 X10'3 (4.5-11.0)
[2023-01-05 03:20] LABS: ALANINE AMINOTRANSFERASE 52 U/L (12-78); ALBUMIN 1.3 G/DL (3.4-5.0); ALBUMIN/GLOBULIN RATIO 0.4 (1.1-1.5); ALKALINE PHOSPHATASE 134 IU/L (46-116); ANION GAP 10 (8-16); ASPARTATE AMINO TRANSFERASE 84 U/L (10-37); BILIRUBIN,TOTAL 2.8 MG/DL (0.1-1.0); BLOOD UREA NITROGEN 47 MG/DL (7-18); BUN/CREATININE RATIO 27.2 (10.0-20.0); CALCIUM 7.5 MG/DL (8.5-10.1); CHLORIDE 118 MMOL/L (99-107); CREATININE 1.73 MG/DL (0.60-1.10); GLUCOSE 115 MG/DL (70-104); MAGNESIUM 1.7 MG/DL (1.5-2.4); POTASSIUM 3.2 MMOL/L (3.5-5.1); SODIUM 152 MMOL/L (135-145); TOTAL CARBON DIOXIDE 24.1 MMOL/L (24-32); TOTAL PROTEIN 4.9 G/DL (6.4-8.2); eGFR 39 ML/MIN
[2023-01-05] MEDS: ipratropium/albuterol 3ml nebule NEB SCH ×6 (03:24→23:41)
[2023-01-05] MEDS: potassium Cl 40MEQ/270ML bag 270 ML IV PRN ×2 (04:01→15:08)
--- NOTE | 2023-01-05 06:15 | NUR ---
Problems reprioritized. Patient report given, questions answered & plan of care reviewed with Chito VERA.
[2023-01-05] MEDS: LORazepam 0.5 MG tablet PO SCH ×2 (07:57→20:00)
[2023-01-05] MEDS: carVEDilol 3.125mg tablet PO SCH ×2 (07:57→21:16)
[2023-01-05] MEDS: docusate sodium 100mg/10ml UD cup PO SCH ×3 (07:57→21:16)
[2023-01-05] MEDS: potassium chloride 10mEq ER tablet PO SCH (07:57)
[2023-01-05] MEDS: sacubitril/valsartan 24mg-26mg tablet PO SCH ×2 (07:57→22:54)
[2023-01-05] MEDS: atorvastatin 20mg tablet PO SCH (07:57)
[2023-01-05] MEDS: spironolactone 25 MG tablet PO SCH (07:58)
[2023-01-05] MEDS: furosemide 40mg/4ml inj IV SCH ×2 (07:58→21:16)
[2023-01-05] MEDS: nicotine 14mg patch - 24hr TD SCH (07:58)
[2023-01-05] MEDS: K and/or MAG REPLACEMENT MC SCH ×2 (08:00→20:00)
--- NOTE | 2023-01-05 11:04 | NUR ---
Reassessment: Per EMR pt extubated 01/04, s/p BSS this morning with ST recs pureed food with thin liquids. Pending first meal since diet advancement. Pt continues receiving D5 at 75 mL/hr for hypernatremia providing 306 kcal/day. LBN 01/04. No more evidence of bleeding at this time per RN at [facility]. Will continue to follow closely and monitor need for nutrition intervention pending trends in PO intake. Recommendations: 1) Continue pureed diet with thin liquids per ST recs; add heart healthy CHO controlled diet IF pt with adequate PO intake and elevated BG 2) Monitor need for ONS 3) Bowel care per MD 4) DM education as appropriate following official DM dx by physician; A1c hx 7.1% 12/01/21, 7.4% 10/14/22, and 9.0% 11/05/22 and no known DM dx provided yet-physician notified 01/02 Addendum: 01/05/23 at [address] Amended: Links added.
[2023-01-05] MEDS: dextrose 5%-water 1,000 ML IV SCH (13:51)
[2023-01-05] MEDS: vancomycin/NS 1 GM ADD-VANTAGE 250 ML IV SCH (13:51)
[2023-01-05 14:31] LABS: HEMATOCRIT 28.4 % (42.0-52.0); MEAN CORPUSCULAR HEMOGLOBIN 29.3 PG (27.0-31.0); MEAN CORPUSCULAR HGB CONC 31.9 g/dL (33.0-36.5); MEAN PLATELET VOLUME 8.3 FL (7.4-10.4); PLATELET COUNT 387 X10'3 (140-440); RED BLOOD COUNT 3.08 X10'6 (4.70-6.10); RED CELL DISTRIBUTION WIDTH 17.7 % (11.5-14.5); WHITE BLOOD COUNT 11.6 X10'3 (4.5-11.0)
[2023-01-05] MEDS: CLINDAMYCIN 600mg IN NS 50ML 50 ML IV SCH ×2 (16:37→23:55)
--- NOTE | 2023-01-05 18:22 | NUR ---
Problems reprioritized. Patient report given, questions answered & plan of care reviewed with JODY Rojas.
--- NOTE | 2023-01-05 18:30 | NUR ---
Patient in room CICU 2016. I have received report from JODY Dale and had the opportunity to ask questions and assume patient care.
[2023-01-05 20:11] LABS: BASOPHILS % (AUTO) 0.2 % (0-1); EOSINOPHILS # (AUTO) 0.2 X10'3 (0-0.9); EOSINOPHILS % (AUTO) 1.3 % (0-6); HEMATOCRIT 28.4 % (42.0-52.0); HEMOGLOBIN 9.3 g/dl (14.0-17.9); LYMPHOCYTES # (AUTO) 0.5 X10'3 (1.1-4.8); LYMPHOCYTES % (AUTO) 3.7 % (21-51); MEAN CORPUSCULAR HEMOGLOBIN 29.9 PG (27.0-31.0); MEAN CORPUSCULAR HGB CONC 32.6 g/dL (33.0-36.5); MEAN CORPUSCULAR VOLUME 91.7 FL (78-98); MEAN PLATELET VOLUME 8.6 FL (7.4-10.4); MONOCYTES # (AUTO) 1.1 X10'3 (0-0.9); MONOCYTES % (AUTO) 8.3 % (2-12); NEUTROPHILS # (AUTO) 11.6 X10'3 (1.8-7.7); NEUTROPHILS % (AUTO) 86.5 % (42-75); PLATELET COUNT 395 X10'3 (140-440); RED CELL DISTRIBUTION WIDTH 17.7 % (11.5-14.5); WHITE BLOOD COUNT 13.4 X10'3 (4.5-11.0)
[2023-01-05] MEDS: digoxin 125mcg (0.125mg) tablet PO SCH (21:17)
[2023-01-06] VITALS (15 sets, daily range): BP systolic 85–133; BP diastolic 55–76
[2023-01-06] MEDS: pantoprazole 40MG/NS 100ML BAG 100 ML IV SCH ×2 (00:09→04:59)
[2023-01-06] MEDS: dextrose 5%-water 1,000 ML IV SCH (00:39)
[2023-01-06 03:19] LABS: BASOPHILS % (AUTO) 0.4 % (0-1); EOSINOPHILS # (AUTO) 0.3 X10'3 (0-0.9); EOSINOPHILS % (AUTO) 2.2 % (0-6); HEMATOCRIT 27.1 % (42.0-52.0); HEMOGLOBIN 8.7 g/dl (14.0-17.9); LYMPHOCYTES # (AUTO) 0.6 X10'3 (1.1-4.8); LYMPHOCYTES % (AUTO) 4.9 % (21-51); MEAN CORPUSCULAR HEMOGLOBIN 29.5 PG (27.0-31.0); MEAN CORPUSCULAR HGB CONC 32.2 g/dL (33.0-36.5); MEAN CORPUSCULAR VOLUME 91.9 FL (78-98); MEAN PLATELET VOLUME 8.2 FL (7.4-10.4); MONOCYTES # (AUTO) 1.1 X10'3 (0-0.9); NEUTROPHILS # (AUTO) 10.1 X10'3 (1.8-7.7); NEUTROPHILS % (AUTO) 83.5 % (42-75); PLATELET COUNT 359 X10'3 (140-440); RED BLOOD COUNT 2.95 X10'6 (4.70-6.10); RED CELL DISTRIBUTION WIDTH 18.3 % (11.5-14.5); WHITE BLOOD COUNT 12.1 X10'3 (4.5-11.0)
[2023-01-06] MEDS: ipratropium/albuterol 3ml nebule NEB SCH ×3 (03:32→12:38)
[2023-01-06 03:33] LABS: ALANINE AMINOTRANSFERASE 53 U/L (12-78); ALBUMIN 1.2 G/DL (3.4-5.0); ALBUMIN/GLOBULIN RATIO 0.3 (1.1-1.5); ALKALINE PHOSPHATASE 146 IU/L (46-116); ANION GAP 9 (8-16); ASPARTATE AMINO TRANSFERASE 85 U/L (10-37); BILIRUBIN,TOTAL 3.6 MG/DL (0.1-1.0); BLOOD UREA NITROGEN 43 MG/DL (7-18); CALCIUM 7.1 MG/DL (8.5-10.1); CHLORIDE 118 MMOL/L (99-107); CREATININE 1.72 MG/DL (0.60-1.10); GLUCOSE 156 MG/DL (70-104); POTASSIUM 3.5 MMOL/L (3.5-5.1); SODIUM 150 MMOL/L (135-145); TOTAL CARBON DIOXIDE 22.8 MMOL/L (24-32); TOTAL PROTEIN 4.8 G/DL (6.4-8.2); eGFR 40 ML/MIN
[2023-01-06 04:36] LABS: PLATELET ESTIMATE NORMAL; TOTAL CELLS COUNTED 100
[2023-01-06 04:37] LABS: ANISOCYTOSIS 2+; POLYCHROMASIA 1+; TEAR DROP CELLS FEW
[2023-01-06 04:38] LABS: SMUDGE CELLS FEW
--- NOTE | 2023-01-06 06:13 | NUR ---
Problems reprioritized. Patient report given, questions answered & plan of care reviewed with JODY Dale.
[2023-01-06] MEDS: K and/or MAG REPLACEMENT MC SCH (08:00)
[2023-01-06] MEDS: docusate sodium 100mg/10ml UD cup PO SCH (08:40)
[2023-01-06] MEDS: sacubitril/valsartan 24mg-26mg tablet PO SCH (08:41)
[2023-01-06] MEDS: LORazepam 0.5 MG tablet PO SCH (08:41)
[2023-01-06] MEDS: atorvastatin 20mg tablet PO SCH (08:41)
[2023-01-06] MEDS: spironolactone 25 MG tablet PO SCH (08:41)
[2023-01-06] MEDS: furosemide 40mg/4ml inj IV SCH (08:41)
[2023-01-06] MEDS: carVEDilol 3.125mg tablet PO SCH (08:41)
[2023-01-06] MEDS: CLINDAMYCIN 600mg IN NS 50ML 50 ML IV SCH (08:42)
[2023-01-06] MEDS: nicotine 14mg patch - 24hr TD SCH (08:42)
[2023-01-06] MEDS: potassium chloride 10mEq ER tablet PO SCH (08:42)
[2023-01-06] MEDS ORDERED: VANCOMYCIN LEVEL IV ONE (12:30)
--- NOTE | 2023-01-06 13:19 | NUR ---
Report caled to JODY Kohler at [facility]
--- NOTE | 2023-01-06 14:15 | NUR ---
Pt transported to [facility] by [facility]. Cell phone and battery charger conveyor line sent with transport team. Pt's Brother Luciano informed of transfer to SNF.
[2023-01-06] MEDS ORDERED: pantoprazole 40MG/NS 100ML BAG 100 ML IV SCH (20:00)
[2023-01-10] MEDS ORDERED: ESOM20CA PO (22:16)
[2023-01-10] MEDS ORDERED: DOCU-195 PO (22:16)
[2023-01-10] MEDS ORDERED: HYDR-3965 PO (22:21)
[2023-01-10] MEDS ORDERED: HYDR-3972 PO (22:21)
[2023-01-10] MEDS ORDERED: GABA100C PO (22:21)
[2023-01-10] MEDS ORDERED: ALBU2.5V10 NEB ×2 (23:00→23:03)
[2023-01-10] MEDS ORDERED: POLY17PO59 (23:00)
[2023-01-10] MEDS ORDERED: ONDA4TAB12 PO (23:00)
[2023-01-10] MEDS ORDERED: POTA40LI16 GT (23:00)
[2023-01-10] MEDS ORDERED: CLIN600P10 IV (23:00)
[2023-01-10] MEDS ORDERED: MAG30ORA GT (23:00)
[2023-01-11] MEDS ORDERED: DOCU60SY GT (00:13)
== END 2023-01-06 15:30 | DRG 377 ==
LOC: ER 18:29 → ED HOLD 01-01 00:42 → CICU 2S 01-01 20:37
PROVIDERS: ADMIT Internal Medicine; ATTEND Internal Medicine
PROC: 5A1945Z Respiratory Ventilation, 24-96 Consecutive Hours (ICD-10-PCS; principal; 2023-01-01)
PROC: 0BH17EZ Insertion of Endotracheal Airway into Trachea, Via Natural or Artificial Opening (ICD-10-PCS; 2023-01-01)
PROC: 3E0G8GC Introduction of Other Therapeutic Substance into Upper GI, Via Natural or Artificial Opening Endoscopic (ICD-10-PCS; 2023-01-01)
PROC: 30233N1 Transfusion of Nonautologous Red Blood Cells into Peripheral Vein, Percutaneous Approach (ICD-10-PCS; 2023-01-01)
PROC: 0DJ08ZZ Inspection of Upper Intestinal Tract, Via Natural or Artificial Opening Endoscopic (ICD-10-PCS; 2023-01-02)
DX: K26.4 Chronic or unspecified duodenal ulcer with hemorrhage (principal); I50.23 Acute on chronic systolic (congestive) heart failure; J96.00 Acute respiratory failure, unspecified whether with hypoxia or hypercapnia; R57.8 Other shock; J15.212 Pneumonia due to Methicillin resistant Staphylococcus aureus; D62 Acute posthemorrhagic anemia; I13.0 Hypertensive heart and chronic kidney disease with heart failure and stage 1 through stage 4 chronic kidney disease, or unspecified chronic kidney disease; I42.9 Cardiomyopathy, unspecified; N17.9 Acute kidney failure, unspecified; I48.11 Longstanding persistent atrial fibrillation; R04.2 Hemoptysis; J44.0 Chronic obstructive pulmonary disease with (acute) lower respiratory infection; E87.0 Hyperosmolality and hypernatremia; Z66 Do not resuscitate; K21.00 Gastro-esophageal reflux disease with esophagitis, without bleeding; B95.61 Methicillin susceptible Staphylococcus aureus infection as the cause of diseases classified elsewhere; F17.210 Nicotine dependence, cigarettes, uncomplicated; E78.5 Hyperlipidemia, unspecified; F15.90 Other stimulant use, unspecified, uncomplicated; I25.10 Atherosclerotic heart disease of native coronary artery without angina pectoris; N18.30 Chronic kidney disease, stage 3 unspecified; I25.2 Old myocardial infarction; Z79.01 Long term (current) use of anticoagulants; Z88.0 Allergy status to penicillin; Z95.5 Presence of coronary angioplasty implant and graft; Z79.899 Other long term (current) drug therapy; Z79.82 Long term (current) use of aspirin
CPT/HCPCS: 36415; 36430; 36600; 43235; 43243; 43255; 71045; 80053; 81001; 81003; 82803; 82948; 83735; 83880; 84132; 84478; 85007; 85018; 85025; 85027; 85610; 85730; 86885; 86900; 86901; 86920; 87070; 87077; 87081; 87088; 87186; 92508; 94002; 94003; 94640; 94760; 96374; 97110; 97161; 97530; 99152; 99153; 99285; A4615; A4620; A6212; A6213; A6258; A6449; A7015; C9113; G0378; J0171; J0692; J1250; J1940; J2250; J2354; J2704; J2997; J3010; J3370; J3480; J3490; J7030; J7040; J7050; J7070; P9016; P9045